=== PATIENT | male | born 1995 | race American Indian/Alaskan Native ===

== ENCOUNTER 2017-02-07 23:40 | Emergency (ER) | payer BC ==
[2017-02-08 00:02] VITALS: BP 151/73
--- NOTE | 2017-02-08 01:23 | XRay Report ---
FINAL REPORT EXAM: XR HAND 3 RT HISTORY: Rt 4th Finger impact, pain, send for report COMPARISON: None available. FINDINGS: Three views of right hand obtained. There is an oblique fracture extending through the mid body and distal aspect of the 4th proximal phalanx. There is intra-articular extension of the fracture. Joint spaces are preserved. Remaining bony structures are intact. IMPRESSION: Oblique nondisplaced fracture extending through the mid to distal aspect of the 4th proximal phalanx with intra-articular extension. No dislocation.
--- NOTE | 2017-02-08 01:37 | Emergency Department Report ---
ED Upper Extremity Inj HPI - General Chief Complaint: Extremity Injury, Upper Stated Complaint: POSS BROKEN FINGER Time Seen by Provider: 02/08/17 01:12 Source: patient Mode of arrival: Ambulatory Limitations: No Limitations - History of Present Illness Initial Comments: finger pain and swelling Complaint: Injury to:: right Onset/Timin -: days(s) Other Extremity Injury: Fingers: Right Other Injuries: none Handedness: right Place: outdoors Severity scale (0 -10): 4 Improves With: none Worsens With: movement of extremity Context: direct blow (playing basketball impacted other players knee with finger ) Associated Symptoms: denies: weakness, numbness, neck pain, suspects foreign body, nausea/vomiting, heard/felt popping sensat - Related Data Previous Rx's Medication Instructions Recorded Last Taken Type Acetaminophen/Codeine [Tylenol 1 tab PO Q6H PRN #20 tab 02/08/17 Unknown Rx /Codeine # 3 tab] Allergies Allergy/AdvReac Type Severity Reaction Status Date / Time No Known Allergies Allergy Verified 02/07/17 23:54 ED Review of Systems ROS: Stated complaint: POSS BROKEN FINGER Other details as noted in HPI Constitutional: denies: chills, fever Eyes: denies: eye pain, eye discharge, vision change ENT: denies: ear pain, throat pain Respiratory: denies: cough, shortness of breath, wheezing Cardiovascular: denies: chest pain, palpitations Endocrine: no symptoms reported Gastrointestinal: denies: abdominal pain, nausea, diarrhea Genitourinary: denies: urgency, dysuria Musculoskeletal: joint swelling, myalgia. denies: back pain Skin: denies: rash, lesions Neurological: denies: headache, weakness, paresthesias Psychiatric: denies: anxiety, depression Hematological/Lymphatic: denies: easy bleeding, easy bruising ED Past Medical Hx - Surgical History Past Surgical History?: No - Social History Smoking Status: Never Smoker Substance Use Type: None - Medications Home Medications: Home Medications Medication Instructions Recorded Confirmed Last Taken Type Acetaminophen/Codeine [Tylenol 1 tab PO Q6H PRN #20 tab 02/08/17 Unknown Rx /Codeine # 3 tab] ED Physical Exam - General Limitations: No Limitations General appearance: alert, in no apparent distress - Head Head exam: Present: atraumatic, normocephalic - Eye Eye exam: Present: normal appearance - ENT ENT exam: Present: mucous membranes moist - Neck Neck exam: Present: normal inspection - Respiratory Respiratory exam: Present: normal lung sounds bilaterally - Cardiovascular Cardiovascular Exam: Present: regular rate, normal rhythm. Absent: systolic murmur, diastolic murmur, rubs, gallop - GI/Abdominal GI/Abdominal exam: Present: soft, normal bowel sounds - Rectal Rectal exam: Present: deferred - Expanded Upper Extremity Exam Right Shoulder Exam: Present: normal inspection, full ROM Upper Arm exam: Present: normal inspection, full ROM Elbow exam: Present: normal inspection, full ROM Forearm Wrist exam: Present: normal inspection Hand Wrist exam: Present: tenderness, swelling (4th digit 1st joint swelling ). Absent: abrasion, laceration, ecchymosis, deformity, crepidus, dislocation, erythema, amputation, nail avulsion, subungual hematoma Neuro motor exam: Present: wrist extension intact, thumb opposition intact, thumb IP flexion intact, thumb adduction intact, fingers 2-5 abduction intact, other Neurosensory exam: Present: 2-point discrimination, radial nerve intact, ulnar nerve intact, median nerve intact Vascular: Present: normal capillary refill, radial pulse, brachial pulse, ulnar pulse. Absent: vascular compromise, Pallo, pulse deficit radial art, pulse deficit ulnar art, pulse deficit brachial art - Back Exam Back exam: Present: normal inspection - Neurological Exam Neurological exam: Present: alert, oriented X3, CN II-XII intact, reflexes normal - Psychiatric Psychiatric exam: Present: normal affect, normal mood - Skin Skin exam: Present: warm, dry, intact, normal color. Absent: rash ED Course Vital Signs 02/07/17 23:45 Temperature 98.1 F Pulse Rate 58 L Respiratory 18 Rate Blood Pressure 151/73 [Right] O2 Sat by Pulse 99 Oximetry ED Medical Decision Making - Radiology Data Radiology results: report reviewed closed nondisplace 4th metacarpal fracture - Medical Decision Making pt is as 21 y/o aam with nmh who presents for right ring finger pain and swelling after hitting right ring finger no other player knee earlier today symptoms include pain swelling, exam: right ring finger swelling to 1 joint no ecchymosis no deformity pain to extension, closed fist to opposition intact, 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 Critical care attestation.: If time is entered above; I have spent that time in minutes in the direct care of this critically ill patient, excluding procedure time. ED Disposition Clinical Impression: Finger fracture, right Qualifiers: Encounter type: initial encounter Finger: ring finger Fracture type: closed Phalanx: middle Fracture alignment: nondisplaced Qualified Code(s): S62.654A - Nondisplaced fracture of medial phalanx of right ring finger, initial encounter for closed fracture Disposition: - TO HOME OR SELFCARE Is pt being admited?: No Does the pt Need Aspirin: No Condition: Good Instructions: Finger Fracture (ED) Additional Instructions: follow up with orthopedics Dr. Dillon [phone] ashish Prescriptions: Acetaminophen/Codeine [Tylenol /Codeine # 3 tab] 1 tab PO Q6H PRN #20 tab PRN Reason: Pain Referrals: PRIMARY CARE, [Primary Care Provider] - 3-5 Days Forms: Work/School Release Form(ED) Time of Disposition: 01:49
[2017-02-08] MEDS ORDERED: ULTRAM PO ONE (01:42)
== END 2017-02-08 01:56 | disposition home or self-care (01) ==
LOC: ED 23:40
DX: S62.654A Nondisplaced fracture of middle phalanx of right ring finger, initial encounter for closed fracture (principal); X58.XXXA Exposure to other specified factors, initial encounter; Y93.67 Activity, basketball; Y99.9 Unspecified external cause status; Y92.89 Other specified places as the place of occurrence of the external cause